=== PATIENT | female | born 1970 ===

== ENCOUNTER 2022-03-06 01:28 | Inpatient (IN) | payer MEDICARE ==
[2022-03-06] MEDS ORDERED: MAG HYDROX/AL HYDROX/SIMETH 30 ML CUP PO PRN (01:36)
[2022-03-06] MEDS ORDERED: MAGNESIUM HYDROXIDE 2,400 MG/10 ML CUP PO PRN (01:36)
[2022-03-06] MEDS ORDERED: HALOPERIDOL LACTATE 5 MG/ML 1 ML VIAL IM PRN (01:38)
[2022-03-06] MEDS ORDERED: LORazepam 2 MG/ML INJ IM PRN (01:39)
[2022-03-06] MEDS: LORazepam 1 MG TAB PO PRN ×2 (06:52→18:42)
[2022-03-06] MEDS ORDERED: INSULIN ASPART (NovoLOG) 100 UNIT/ML VIAL SQ SCH (07:30)
[2022-03-06 07:47] LABS: Glucose,Whole Blood 151 mg/dL (70-110)
[2022-03-06] MEDS: ARIPiprazole 15 MG TAB PO SCH (10:26)
[2022-03-06] MEDS: lamoTRIgine 100 MG TAB PO SCH (10:26)
[2022-03-06] MEDS: NICOTINE 14MG/24HR PATCH TRANSDERM SCH (10:26)
--- NOTE | 2022-03-06 11:28 | P.HP ---
Psychiatric H&P - . H&P Date: 03/06/22 History & Physical: Allergies Allergy/AdvReac Type Severity Reaction Status Date / Time Sulfa (Sulfonamide Allergy Unknown Verified 03/06/22 02:48 Antibiotics) Vital Signs Temp 97.1 F L 03/06/22 01:51 Pulse 74 03/06/22 01:51 Resp 15 03/06/22 01:51 BP 117/71 03/06/22 01:51 Pulse Ox 97 03/06/22 01:51 FiO2 Intake & Output 03/05/22 03/06/22 03/06/22 18:59 06:59 18:59 Weight 80.343 kg Laboratory Last Values POC Glucose (mg/dL) 151 mg/dL (70-110) H 03/06/22 07:39 POC Glu [employer] Specialist ID Kat Buitrago 03/06/22 07:39 03/06/22 09:15 Chief complaint: The patient agrees that she has psychotic symptoms racing thoughts and difficulty with social presentation she says she has voices that criticize her it is the voice of her sister or her mother. She denies current suicidality. History of present illness: The patient was transferred to us from [facility]. It's a little unclear why she was transferred. She says that she was getting sick and tired of them not doing anything about her problem. She went into the hospital because of a suicide attempt. She denies that it was actually a suicide attempt she admits to confusion and taking her pills all over again he care she forgot that she had already taken them. She says that she has been struggling for 20 years with her illness and the thing that has worked best his Abilify shots every month. Symptomatology: She feels that her food might be poisoned. She worries that any meat might have ground up human beings and it says she will not eat it and that she sees that she can being cooked. She feels people touching her and looks around and no one is there she feels people's presence in the room. She sees faces staring at her from common objects in the room. The voices have negative content U she saying things like oh you're just doing it for the attention. One concern is that she complains of long-term history of grinding teeth to where she even will bite her lip. She also says that when she walks and uses her hand it feels on and staff. Past history: She has been diagnosed with schizoaffective bipolar type: Medications used are antidepressants which tend to make her works causing restless leg and stirring up psychosis she has been treated at various times with Elavil 100 mg Zoloft 150 Paxil which made her agitated she has also been given Adderall for ADHD. She was also given Seroquel which gave her akathisia she has been on olanzapine can't remember what that dad she has been on Depakote she is currently on Lamictal 150 twice a day for fluctuating depression and gabapentin for restless leg and the Abilify shots which is overdue. Mental status exam the patient is alert. She was lying in bed at 9:00 when I came to see her but got up readily and came and talked. Her hospital gown was loosely arranged and she is covered intent to's. She was oriented to person place time and circumstance. However she could not stand topic with pressured speech and flight of ideas. She could remember 3 of 3 objects after 3 minutes. She could name the last 3 presidents and all of the [facility] [employer] although she stuck in [facility] and [place]. When asked to subtract 7 from 93 she got 62 trying to spell world backward she said DLOR positive said R O+ said DL ROW. She races at things. She is quite intelligent and abstract but cannot control it due to the racing thoughts. 4 cats and snakes she said they both are products of evolution. I've never heard that response before that shows abstract creativity. She also said they have sayings and they're darn sneaky. She then branched off into talking about writing a book about leaves having been inspired in the [facility]. Abstracting the grass looks greener on the side defense she says they were UR. Social history: She is the fourth of 6 children born to her parents who stayed together until dad at age 77 and mom is alive at 82. She has no history Legal she has a felony that she has not been able to defend herself in regards to because she is paranoid of courtrooms. She was once for 4 years and has a son 29 who lives with his dad due to having disabling Asperger's. She has had multiple long-term relationships with different men and does have a 22-year-old daughter who is doing well in the [place]. and early development was normal as far she knows. She completed high school and earned 100 credits of college but kept quitting just before finishing anything. Substance use she abused alcohol in the past but gave that up 14 years ago. She does use marijuana on a daily basis. She lives alone in a mobile home with 2 cats and has a "partner" who is taking care of her cats. Diagnosis bipolar 1 manic with psychosis Assessment the patient is a danger to herself simply because her mind is racing. she's impulsive she can not stay on topic and her judgment is impaired. The problem with treatment is what is this grinding jaw at bedtime, poor nerves or some sort of sleep disorder. She has been told that she has narcolepsy. Upon careful examination I did not see any signs of body movement lip movements or tongue movement that would fit with tardive dyskinesia. I did discuss with her the option of clozapine, but she was very hesitant and did not feel that her life was stable enough to come in for blood draw every week. I did educate her also on the importance of taking Lamictal dependably she says she had not been informed on that before and that have been times where she has forgotten it for a period of time and restarted at full dose. She was able to repeat the dangers doing that. Plan: For now I'm going to give her oral Abilify on the little hesitant to give her a shot that lasts a month, until we figure out what this grinding it is. We are going to continue the Lamictal at 300 each morning with Abilify 15 and gabapentin 600 4 times a day. Hopefully her racing thoughts will stabilize. We discussed the possibility of going with Depakote a lower dose of Lamictal and the gabapentin to avoid any possibility of tardive dyskinesia but I don't think that would take care of the psychosis.
[2022-03-06] MEDS: GABAPENTIN 300 MG CAP PO SCH ×3 (12:34→21:07)
[2022-03-06 12:38] LABS: Glucose,Whole Blood 86 mg/dL (70-110)
[2022-03-06 17:19] LABS: Chol/HDL Ratio 8.23 Ratio; LDL Cholesterol,Calculated 215.1 mg/dL (0.0-131.0)
[2022-03-06] MEDS: ACETAMINOPHEN TAB 325 MG TAB PO PRN (18:41)
--- NOTE | 2022-03-07 02:27 | P.CONS ---
History of Present Illness - Reason for Consult Consult date: 03/06/22 - History of Present Illness Patient is a 52-year-old female with a PMH of schizophrenia, tobacco abuse, and mild intermittent asthma who had initially presented [facility] for an overdose. The patient was subsequently transferred to [facility] unit where she was seen and evaluated. She reports smoking half a pack of cigarettes daily. She denied any physical complaints at the time of interv iew. She denied experiencing chest discomfort, shortness of breath, fever, chills, cough, nausea, vomiting, abdominal pain, diarrhea. The patient's laboratory evaluation was reviewed with elevated LDL at 215 and low HDL at 39. Review of systems: Pertinent positives and negatives as discussed in HPI, a complete review of systems was performed and all other systems are negative. Physical examination: General: non toxic, no distress, appears at stated age, overweight Derm: no unusual rashes/lesions, no unusual ecchymoses, warm, dry Head: atraumatic, normocephalic, symmetric Eyes: EOMI, no lid lag, anicteric sclera ENT: Nose and ears atraumatic, no thrush, no pharyngeal erythema Neck: trachea midline, supple Mouth: no lip lesion, mucus membranes moist Cardiovascular: S1S2 reg, no murmur, no edema Lungs: CTA bilateral, no rhonchi, no rales , no accessory muscle use Abdominal: soft, nontender to palpation, no guarding Ext: no gross muscle atrophy, no contractures, Neuro: No gross focal neuro deficits noted Psych: Alert, oriented, appropriate affect Assessment/plan Hyperlipidemia -Start patient on low-dose Lipitor Psychosis -As per psychiatry Thank you for allowing us to participate in the care of this patient. We will follow peripherally. Do not hesitate to contact us with questions. Someone can be reached from the [facility] hospitalist group at all hours of the day at [phone]. Past Medical History Smoking Status: Current every day smoker - Past Family History Sister(s) Family Medical History: Cancer Medications and Allergies Home Medications Medication Instructions Recorded Confirmed Type ARIPiprazole IM [Abilify Maintena] 400 mg IM QMONTHLY 03/06/22 03/06/22 History Albuterol Inhaler [Ventolin Hfa 1 - 2 puff INHALATION Q6H PRN 03/06/22 03/06/22 History Inhaler] Amitriptyline HCl [Elavil] 100 mg PO 03/06/22 History Atomoxetine HCl 60 mg PO 03/06/22 History Sertraline HCl [Zoloft] 50 mg PO 03/06/22 History lamoTRIgine [LaMICtal ODT] 100 mg PO DAILY 03/06/22 03/06/22 History Allergies Allergy/AdvReac Type Severity Reaction Status Date / Time Sulfa (Sulfonamide Allergy Unknown Verified 03/06/22 02:48 Antibiotics) Physical Exam Vitals: Vital Signs Temp Pulse Resp BP Pulse Ox 03/06/22 01:51 97.1 F L 74 15 117/71 97 Results Labs: Abnormal Lab Results - Last 24 Hours (Table) 03/06/22 03/06/22 Range/Units 07:39 12:21 POC Glucose (mg/dL) 151 H (70-110) mg/dL Triglycerides 352.00 H (0.00-149.00) mg/dL Cholesterol 325.00 H (0.00-200.00) mg/dL LDL Cholesterol, Calc 215.1 H (0.0-131.0) mg/dL VLDL Cholesterol, Calc 70.40 H (5.00-40.00) mg/dL HDL Cholesterol 39.50 L (40.00-60.00) mg/dL
[2022-03-07 06:57] VITALS: RESP 16
[2022-03-07] MEDS: lamoTRIgine 100 MG TAB PO SCH (08:46)
[2022-03-07] MEDS: ARIPiprazole 15 MG TAB PO SCH (08:46)
[2022-03-07] MEDS: GABAPENTIN 300 MG CAP PO SCH ×4 (08:46→21:02)
[2022-03-07] MEDS: LORazepam 1 MG TAB PO PRN ×3 (08:52→20:54)
[2022-03-07] MEDS: NICOTINE 14MG/24HR PATCH TRANSDERM SCH (09:04)
--- NOTE | 2022-03-07 09:56 | P.PN ---
Subjective Progress Note Date: 03/07/22 Principal diagnosis: Diagnosis bipolar 1 manic with psychosis Subjective: The patient says she slept well but today is feeling sad and reviewing all the people she has lost especially her dad. Objective: the patient is alert, cooperative. She is dressed in normal close rather than in a hospital gown. She was oriented to person place time and circumstance. However she still can not stay on topic with pressured speech and flight of ideas, but is definitely slower than yesterday. Plan: Increase Abilify to 10 mg twice a day, until we figure out what this grinding it is. We are going to continue the Lamictal at 300 each morning with Abilify 15 and gabapentin 600 4 times a day.. Hopefully her racing thoughts will stabilize. We discussed the possibility of going with Depakote a lower dose of Lamictal and the gabapentin to avoid any possibility of tardive dyskine cyndy but I don't think that would take care of the psychosis. I think that the Abilify will slow down her bipolar racing and the gabapentin will help with some of her nervousness so I'm not going to change in medicine at this time. Assessment the patient is a danger to herself simply because her mind is racing. However she seems slower than yesterday and I think is benefiting from the medicine she's impulsive she can not stay on topic and her judgment is impaired. She says that the grinding of her job went away when we restarted the gabapentin which would suggest it's caused by tense nerves rather than tardive dyskinesia. Objective - Vital Signs Vital signs: Vital Signs Temp 97.1 F L 03/07/22 06:43 Pulse 72 03/07/22 06:43 Resp 16 03/07/22 06:43 BP 157/78 03/07/22 06:43 Pulse Ox 97 03/06/22 01:51 FiO2 - Labs Labs: Abnormal Lab Results - Last 24 Hours (Table) 03/06/22 Range/Units 12:21 Triglycerides 352.00 H (0.00-149.00) mg/dL Cholesterol 325.00 H (0.00-200.00) mg/dL LDL Cholesterol, Calc 215.1 H (0.0-131.0) mg/dL VLDL Cholesterol, Calc 70.40 H (5.00-40.00) mg/dL HDL Cholesterol 39.50 L (40.00-60.00) mg/dL
[2022-03-07] MEDS ORDERED: ARIPiprazole 10 MG TAB PO SCH (10:00)
[2022-03-07] MEDS: ACETAMINOPHEN TAB 325 MG TAB PO PRN (12:49)
[2022-03-07] MEDS: ATORVASTATIN 20 MG TAB PO SCH (20:54)
[2022-03-08] MEDS: GABAPENTIN 300 MG CAP PO SCH ×4 (08:52→21:01)
[2022-03-08] MEDS: lamoTRIgine 100 MG TAB PO SCH (08:52)
[2022-03-08] MEDS: NICOTINE 14MG/24HR PATCH TRANSDERM SCH (08:52)
[2022-03-08] MEDS ORDERED: ARIPiprazole 10 MG TAB PO SCH (09:00)
[2022-03-08] MEDS: LORazepam 1 MG TAB PO PRN ×4 (09:42→22:17)
[2022-03-08] MEDS ORDERED: ALBUTEROL INHALER 60 PUFF/8 GM INHALER (MHU) INHALATION PRN (11:02)
--- NOTE | 2022-03-08 11:15 | P.PN ---
Progress Note - Text Progress Note Date: 03/08/22 Interval History: Patient was seen wandering the hallways and was directable and agreeable to sp ctaalino with song writer in the office. Patient appears to be rambling at times and also mildly intrusive during conversation. She claims that she was given "tons of Ativan" and pushed with medications when she was at [facility] before coming to this hospital. She states that she does feel irritable at times with staff members and believes that they are calling her a "bitch under their breaths" and states that she does not know why this is happening. She did endorse some paranoia during conversation. She states that her mood and anxiety even gradually improving and states that she wants to remain on Abilify. She claims that she used to be on Abilify Maintenna however has not taken the injection in over a month or 2. Claims that she slept fairly overnight. At this time patient denies any suicidal or homical ideations, intent or plan. Patient denies any auditory, visual hallucinations and denies any paranoia or delusions. Patient denies any side effects from the medications and has been compliant with meds. Mental Status Exam: General Appearance: Patient appears to have multiple tattoos, wearing glasses, be stated age is alert, directable, and attempts to be cooperative. Intrusive at times. Behavior: Patient is calmly seated without any agitated behavior. Intrusive. Speech: Patient's speech is fluent and nonpressured. Mood/Affect: Mood is improving mildly however is anxious, affect is congruent and constricted. Suicidality/Homicidality: Patient denies having any suicidal or homicidal ideation intent or plan. Perceptions: Patient denies any visual hallucinations and denies any auditory hallucinations Though content/process: There is no evidence of any delusional thought content and thought process is linear and goal-directed. Rambles at times. Difficult to redirect. Memory and concentration: AOX3, grossly intact for the purposes of this session Judgment and insight: Improving mildly Assessment Bipolar disorder, with psychotic features Cannabis use disorder mild Nicotine dependence Plan: -Patient continues to meet criteria for inpatient psychiatric admission for symptom stabilization and safety. Patient has signed adult voluntary form and medication consent and was placed in patient's chart. -Medications: Increase Abilify to 10 mg daily +15 mg daily at bedtime for mood stabilization/psychosis, I added Zoloft 50 mg daily for mood/anxiety. Continue Lamictal 300 mg daily for mood stabilization. -When necessary Ativan and Haldol for agitation/aggression. -NRT - nicotine patch -SW on board for discharge planning. Encouraged the patient to participate in milieu. She didn't sign voluntary. Likely discharge in 1-2 days back home.
[2022-03-08] MEDS: SERTRALINE 50 MG TAB PO SCH (12:24)
[2022-03-08] MEDS: ACETAMINOPHEN TAB 325 MG TAB PO PRN (15:38)
[2022-03-08] MEDS: haloperidoL 5 MG TAB PO PRN ×2 (17:32→22:17)
[2022-03-08] MEDS: ATORVASTATIN 20 MG TAB PO SCH (20:42)
[2022-03-08] MEDS ORDERED: ARIPiprazole 15 MG TAB PO SCH (21:00)
[2022-03-09] MEDS: SERTRALINE 50 MG TAB PO SCH (08:09)
[2022-03-09] MEDS: lamoTRIgine 100 MG TAB PO SCH (08:09)
[2022-03-09] MEDS: NICOTINE 14MG/24HR PATCH TRANSDERM SCH (08:09)
[2022-03-09] MEDS: GABAPENTIN 300 MG CAP PO SCH ×4 (08:09→20:42)
[2022-03-09] MEDS: haloperidoL 5 MG TAB PO PRN (08:44)
[2022-03-09] MEDS: LORazepam 1 MG TAB PO PRN ×2 (08:44→21:30)
[2022-03-09] MEDS ORDERED: ARIPiprazole 10 MG TAB PO SCH (09:00)
[2022-03-09] MEDS: PALIPERIDONE 3 MG TAB.ER.24 PO SCH ×2 (10:22→20:42)
--- NOTE | 2022-03-09 10:40 | P.PN ---
Progress Note - Text Progress Note Date: 03/09/22 Interval History: Patient was seen lying in bed today and was directable and agreeable to speak with adjusto writer operator in the office. Patient appears to be more irritable today and claims "people are talking bad about me" and claims that people are "whispering under their breath" both staff and other patients negatively about her. She continues to endorse significant paranoia and impulsivity and negative thoughts towards others. She states that she is feeling fairly irritable. She claims that her mood and anxiety are improving mildly. She states that she is going to some groups however does not like going to them. She states that she is feeling fairly tired today. We spoke about trying a different antipsychotic and patient is agreeable to try paliperidone. She was fairly focused on discharge so that she can see her daughter that's coming from [place]. At this time patient denies any suicidal or homical ideations, intent or plan. Patient denies any visual hallucinations. Patient is stating that she is "hearing voices" from other people when they are not talking. Patient denies any side effects from the medications and has been compliant with meds. Mental Status Exam: General Appearance: Patient appears to have multiple tattoos, wearing glasses, be stated age is alert, directable, and attempts to be cooperative. Intrusive and irritable at times. Behavior: Patient is calmly seated without any agitated behavior. Intrusive and irritable. Speech: Patient's speech is fluent and nonpressured. Mood/Affect: Mood is improving mildly however is anxious, affect is congruent Suicidality/Homicidality: Patient denies having any suicidal or homicidal ideation intent or plan. Perceptions: Patient denies any visual hallucinations and denies any auditory hallucinations Though content/process: There is no evidence of any delusional thought content and thought process is linear and goal-directed. Rambles at times. Difficult to redirect. Memory and concentration: AOX3, grossly intact for the purposes of this session Judgment and insight: Improving mildly Assessment Bipolar disorder, with psychotic features Cannabis use disorder mild Nicotine dependence Plan: -Patient continues to meet criteria for inpatient psychiatric admission for symptom stabilization and safety. Patient has signed adult voluntary form and medication consent and was placed in patient's chart. -Medications: Discontinue Abilify and replace with paliperidone by mouth 3 mg twice a day for psychosis/mood stabilization. Zoloft 50 mg daily for mood/anxiety. Continue Lamictal 300 mg daily for mood stabilization. I added trazodone 100 mg daily at bedtime when necessary for sleep. -When necessary Ativan and Haldol for agitation/aggression. -NRT - nicotine patch -SW on board for discharge planning. Encouraged the patient to participate in milieu. patient is voluntary. Likely discharge in 2-3 days after patient is stabilized and transitioned onto a PRECIADO.
[2022-03-09] MEDS: ATORVASTATIN 20 MG TAB PO SCH (20:42)
[2022-03-09] MEDS: ACETAMINOPHEN TAB 325 MG TAB PO PRN (20:43)
[2022-03-09] MEDS: traZODone HCL 100 MG TAB PO PRN (20:43)
[2022-03-10] MEDS: NICOTINE 14MG/24HR PATCH TRANSDERM SCH (08:34)
[2022-03-10] MEDS: lamoTRIgine 100 MG TAB PO SCH (08:34)
[2022-03-10] MEDS: PALIPERIDONE 3 MG TAB.ER.24 PO SCH ×2 (08:35→20:25)
[2022-03-10] MEDS: SERTRALINE 50 MG TAB PO SCH (08:35)
[2022-03-10] MEDS: GABAPENTIN 300 MG CAP PO SCH ×4 (08:36→20:25)
[2022-03-10 08:42] VITALS: BP 130/85; PULSE 84; TEMP 97.4
--- NOTE | 2022-03-10 10:43 | P.PN ---
Progress Note - Text Progress Note Date: 03/10/22 Interval History: Patient was seen wandering the hallways today after group and was agreeable to speak to typewriter tester in the office. Patient claims that she is doing a lot better today in terms of her mood and irritability. She appeared to be calmer and more polite with greater. Was not rambling and was logical and goal oriented. She states that she is tolerating the medications well and not having much side effects at this time. She also claims that her mood and anxiety but improving. We spoke about the benefits and risks of the medications and also transitioning onto a long-acting injection which the patient is agreeable to. She spoke about wanting to be discharged so she can see her daughter. She claims that her appetite is been improving. She has been going to groups. She is not endorsing much paranoia today about other staff members and patients. At this time patient denies any suicidal or homical ideations, intent or plan. Patient denies any visual hallucinations. Patient is stating that she is "hearing voices" from other people when they are not talking. Patient denies any side effects from the medications and has been compliant with meds. Mental Status Exam: General Appearance: Patient appears to have multiple tattoos, wearing glasses, be stated age is alert, directable, and attempts to be cooperative. Not irritable today. Behavior: Patient is calmly seated without any agitated behavior. Cooperative. Speech: Patient's speech is fluent and nonpressured. Mood/Affect: Mood is improving mildly, affect is congruent and brighter affect. Suicidality/Homicidality: Patient denies having any suicidal or homicidal ideation intent or plan. Perceptions: Patient denies any visual hallucinations and denies any auditory hallucinations Though content/process: There is no evidence of any delusional thought content and thought process is linear and goal-directed. Rambles at times. Memory and concentration: AOX3, grossly intact for the purposes of this session Judgment and insight: Improving mildly Assessment Bipolar disorder, with psychotic features Cannabis use disorder mild Nicotine dependence Plan: -Patient continues to meet criteria for inpatient psychiatric admission for symptom stabilization and safety. Patient has signed adult voluntary form and medication consent and was placed in patient's chart. -Medications: continue with paliperidone by mouth 3 mg twice a day for psychosis/mood stabilization. ordered Invega sustenna 234 mg IM dose for tomorrow morning. Zoloft 50 mg daily for mood/anxiety. Continue Lamictal 300 mg daily for mood stabilization. trazodone 100 mg daily at bedtime when necessary for sleep. -When necessary Ativan and Haldol for agitation/aggression. -NRT - nicotine patch -SW on board for discharge planning. Encouraged the patient to participate in milieu. patient is voluntary. Likely discharge tomorrow after patient receives PRECIADO loading dose.
[2022-03-10] MEDS: ACETAMINOPHEN TAB 325 MG TAB PO PRN ×2 (13:35→21:04)
[2022-03-10] MEDS: ATORVASTATIN 20 MG TAB PO SCH (20:25)
[2022-03-10] MEDS: traZODone HCL 100 MG TAB PO PRN (21:04)
[2022-03-10] MEDS: LORazepam 1 MG TAB PO PRN (21:04)
[2022-03-11] MEDS: NICOTINE 14MG/24HR PATCH TRANSDERM SCH (08:07)
[2022-03-11] MEDS: lamoTRIgine 100 MG TAB PO SCH (08:07)
[2022-03-11] MEDS: SERTRALINE 50 MG TAB PO SCH (08:07)
[2022-03-11] MEDS: PALIPERIDONE 3 MG TAB.ER.24 PO SCH (08:07)
[2022-03-11] MEDS: GABAPENTIN 300 MG CAP PO SCH (08:07)
[2022-03-11] MEDS ORDERED: PALIPERIDONE IM 234 MG/1.5 ML SYG IM ONE (09:00)
--- NOTE | 2022-03-11 09:52 | P.DS ---
Providers Date of admission: 03/06/22 02:33 Expected date of discharge: 03/11/22 Attending physician: Prosper Hewitt MD Consults: 03/06/22 01:36 Consult Physician Routine Consulting Provider: Damion Cuba Consult Reason/Comments: History and physical Do you want consulting provider notified?: Already Contacted Primary care physician: Stated None - Discharge Diagnosis(es) (1) Bipolar disorder with psychotic features Current Visit: Yes Status: Acute Priority: High (2) Cannabis use disorder, mild, abuse Current Visit: Yes Status: Acute Priority: Medium (3) Nicotine dependence Current Visit: Yes Status: Acute Priority: Low Hospital Course: Admission HPI: Admission note was completed by check writer " The patient agrees that she has psychotic symptoms racing thoughts and difficulty with social presentation she says she has voices that criticize her it is the voice of her sister or her mother. She denies current suicidality. The patient was transferred to us from [facility]. It's a little unclear why she was transferred. She says that she was getting sick and tired of them not doing anything about her problem. She went into the hospital because of a suicide attempt. She denies that it was actually a suicide attempt she admits to confusion and taking her pills all over again he care she forgot that she had already taken them. She says that she has been struggling for 20 years with her illness and the thing that has worked best his Abilify shots every month. She feels that her food might be poisoned. She worries that any meat might have ground up human beings and it says she will not eat it and that she sees that she can being cooked. She feels people touching her and looks around and no one is there she feels people's presence in the room. She sees faces staring at her from common objects in the room. The voices have negative content U she saying things like oh you're just doing it for the attention. One concern is that she complains of long-term history of grinding teeth to where she even will bite her lip. She also says that when she walks and uses her hand it feels on and staff." Hospital course: Upon admission to the unit patient was directable and agreeable to commence treatment and signed adult voluntary form. Patient got along well with other patients on the unit and followed unit protocol. Patient was compliant with the medications and denied any side effects throughout hospital course. Patient was started on paliperidone by mouth 3 mg twice a day for psychosis/mood stabilization. Patient was given Invega Sustenna 234 mg IM loading dose on 03/11 and will be due for her next dose of 156 mg IM on 03/18, monthly dose will be due next on 04/08 of 117 mg IM. Zoloft 50 mg daily for mood/anxiety, Lamictal 300 mg daily for mood stabilization, trazodone 100 mg daily at bedtime when necessary for sleep. Patient spoke of her stressors and engaged in therapy both group and individual. Patient was also seen by medical team for history and physical exam. Throughout the course of the hospitalization patient gradually improved with regards to mood, anxiety, psychosis/agitation, sleep and became more future oriented with improved insight and judgment. On the day of discharge patient denied any suicidal or homicidal ideations intent or plan denied any auditory or visual hallucinations. Patient endorsed wanting to live for her kids and also her future. The patient denied any access to guns or weapons. Patient denied any paranoia and did not endorse any delusions. Patient does have a significant history of substance abuse and was counseled on abstaining from all substances including alcohol and marijuana. Patient was offered however declined inpatient substance-abuse rehab. Patient was also counseled on the medications and need for regular compliance and was encouraged to follow-up with their out patient appointment for mental health and also for primary care. Mental status exam: General Appearance: Patient appears to have multiple tattoos, wearing glasses, stated age is alert, pleasant, and cooperative. Patient is in no acute distress and has improved hygiene and grooming Behavior: Patient is calmly seated without any agitated behavior. Speech: Patient's speech is fluent and nonpressured. Mood/Affect: Patient reports their mood is "better", affect is congruent and euthymic. Suicidality/Homicidality: Patient denies having any suicidal or homicidal ideation intent or plan. Perceptions: Patient denies any auditory or visual hallucinations. Though content/process: There is no evidence of any delusional thought content and thought process is linear and goal-directed. more future oriented Memory and concentration: AOX3, grossly intact for the purposes of this session. Can spell "WORLD" backwards correctly. Judgment and insight: improved with guarded prognosis Impression: Bipolar disorder, with psychotic features Cannabis use disorder mild Nicotine dependence Plan: -Continue with discharge today as patient has improved and stabilized psychiatrically and is not currently an imminent threat to herself and/or others. Patient will remain at chronically elevated risk for harm to self and/or others due to his impulsivity and polysubstance abuse. -Continue medications: Continue with paliperidone by mouth 3 mg twice a day for 3 more days then discontinue. Patient was given Invega Sustenna 234 mg IM loading dose on 03/11 and will be due for her next dose of 156 mg IM on 03/18, monthly dose will be due next on 04/08 of 117 mg IM. Continue with Zoloft 50 mg daily for mood/anxiety, Lamictal 300 mg daily for mood stabilization, trazodone 100 mg daily at bedtime when necessary for sleep. -Patient was counseled on the need for medication compliance and appropriate follow-up at mental health and also primary care for medical issues. Patient verbalized understanding and agreed. -Social work to arrange for and conduct family meeting to ensure safety upon discharge and answer any questions/concerns. Social work also to arrange for patients follow up appointments with [facility] for psychiatric care along with follow up with primary care provider. -Patient counseled on abstaining from recreational drugs and marijuana and alcohol. Was informed/educated on the adverse effects on their physical and mental health. Patient verbally agreed and understood. -Patient was instructed to return to the hospital or seek immediate medical care if their psychiatric or medical symptoms do worsen or reoccur. Allergies Allergy/AdvReac Type Severity Reaction Status Date / Time Sulfa (Sulfonamide Allergy Unknown Verified 03/06/22 02:48 Antibiotics) Laboratory Results POC Glucose (mg/dL) 86 mg/dL (70-110) 03/06/22 12:36 POC Glu Medical Transcription ID Aung [place] 03/06/22 12:[address] Glu mg/dL 114 03/06/22 12:21 Hemoglobin A1c 5.6 % (0.0-6.0) 03/06/22 12:21 Triglycerides 352.00 mg/dL (0.00-149.00) H 03/06/22 12:21 Cholesterol 325.00 mg/dL (0.00-200.00) H 03/06/22 12:21 LDL Cholesterol, Calc 215.1 mg/dL (0.0-131.0) H 03/06/22 12:21 VLDL Cholesterol, Calc 70.40 mg/dL (5.00-40.00) H 03/06/22 12:21 HDL Cholesterol 39.50 mg/dL (40.00-60.00) L 03/06/22 12:21 Cholesterol/HDL Ratio 8.23 Ratio 03/06/22 12:21 Vital Signs Temp 97.4 F L 03/10/22 06:00 Pulse 84 03/10/22 06:00 Resp 16 03/10/22 06:00 BP 130/85 03/10/22 06:00 Pulse Ox 98 03/10/22 06:00 FiO2 Patient Condition at Discharge: Stable Plan - Discharge Summary New Discharge Prescriptions: New traZODone HCL [Desyrel] 100 mg PO HS PRN 30 Days tab PRN Reason: Insomnia Paliperidone [Invega] 3 mg PO BID 3 Days tab Atorvastatin [Lipitor] 20 mg PO HS tab Gabapentin [Neurontin] 600 mg PO QID 3 Days cap Nicotine 14Mg/24Hr Patch [Habitrol] 1 patch TRANSDERM DAILY 14 Days patch Paliperidone IM [Invega Sustenna] 156 mg IM ONCE #1 ml Paliperidone Palmitate [Invega Sustenna] 117 mg IM QMONTHLY #1 each lamoTRIgine [LaMICtal] 300 mg PO DAILY 30 Days tab Albuterol Inhaler [Ventolin Hfa Inhaler] 2 puff INHALATION Q6H PRN #1 each PRN Reason: Shortness Of Breath Sertraline [Zoloft] 50 mg PO DAILY 30 Days tab Discontinued Albuterol Inhaler [Ventolin Hfa Inhaler] 1 - 2 puff INHALATION Q6H PRN PRN Reason: Shortness Of Breath ARIPiprazole IM [Abilify Maintena] 400 mg IM QMONTHLY Sertraline HCl [Zoloft] 50 mg PO Amitriptyline HCl [Elavil] 100 mg PO lamoTRIgine [LaMICtal ODT] 100 mg PO DAILY Atomoxetine HCl 60 mg PO Discharge Medication List Albuterol Inhaler [Ventolin Hfa Inhaler] 2 puff INHALATION Q6H PRN #1 each 03/11/22 [Rx] Atorvastatin [Lipitor] 20 mg PO HS tab 03/11/22 [Rx] Gabapentin [Neurontin] 600 mg PO QID 3 Days cap 03/11/22 [Rx] Nicotine 14Mg/24Hr Patch [Habitrol] 1 patch TRANSDERM DAILY 14 Days patch 03/11/22 [Rx] Paliperidone IM [Invega Sustenna] 156 mg IM ONCE #1 ml 03/11/22 [Rx] Paliperidone Palmitate [Invega Sustenna] 117 mg IM QMONTHLY #1 each 03/11/22 [Rx] Paliperidone [Invega] 3 mg PO BID 3 Days tab 03/11/22 [Rx] Sertraline [Zoloft] 50 mg PO DAILY 30 Days tab 03/11/22 [Rx] lamoTRIgine [LaMICtal] 300 mg PO DAILY 30 Days tab 03/11/22 [Rx] traZODone HCL [Desyrel] 100 mg PO HS PRN 30 Days tab 03/11/22 [Rx] Follow up Appointment(s)/Referral(s): [facility] [Other] - 1 Week Activity/Diet/Wound Care/Special Instructions: Avoid the use of street drugs and alcohol. Take all prescriptions as prescribed. When you are in need of refills on your medications, please contact your medical provider and/or outpatient psychiatrist to have this done. Please go to scheduled outpatient appointment for aftercare treatment. If symptoms return or become worse, call the crisis line at and/or go to the nearest emergency room for evaluation. Discharge Disposition: HOME SELF-CARE
== END 2022-03-11 12:20 | disposition home or self-care (01) | DRG 880 ==
LOC: 3MHU 02:33
PROVIDERS: ADMIT Psychiatry & Neurology Psychiatry; ATTEND Psychiatry & Neurology Psychiatry
DX: R45.851 Suicidal ideations (principal); F31.2 Bipolar disorder, current episode manic severe with psychotic features; F84.5 Asperger's syndrome; F12.10 Cannabis abuse, uncomplicated; F41.9 Anxiety disorder, unspecified; G25.81 Restless legs syndrome; G47.419 Narcolepsy without cataplexy; J45.20 Mild intermittent asthma, uncomplicated; F17.210 Nicotine dependence, cigarettes, uncomplicated; E78.5 Hyperlipidemia, unspecified; Z79.899 Other long term (current) drug therapy; Z88.2 Allergy status to sulfonamides; Z71.51 Drug abuse counseling and surveillance of drug abuser
CPT/HCPCS: 80061; 83036